=== PATIENT | male | born 1955 | race African-American/Black ===

== ENCOUNTER 2022-03-09 18:18 | Emergency (ER) | payer SELFPAY ==
[~2022-03-09] VITALS: Ht 185.4 cm; Wt 69.0 kg
[2022-03-09] MEDS ORDERED: IBUPROFEN 600MG TABLET PO ONE (18:45)
[2022-03-09 18:48] VITALS: BP 101/62
[2022-03-09] MEDS ORDERED: IBUP-2029 MT (20:30)
== END 2022-03-09 20:55 | disposition home or self-care (01) ==
LOC: ER 18:18
DX: S90.32XA Contusion of left foot, initial encounter (principal); S70.02XA Contusion of left hip, initial encounter; F17.210 Nicotine dependence, cigarettes, uncomplicated; V03.90XA Pedestrian on foot injured in collision with car, pick-up truck or van, unspecified whether traffic or nontraffic accident, initial encounter; Y93.89 Activity, other specified; Y92.488 Other paved roadways as the place of occurrence of the external cause
CPT/HCPCS: 73502; 73630; 99284